=== PATIENT | female | born 1970 | race American Indian/Alaskan Native ===

== ENCOUNTER → 2018-02-09 23:24 | Emergency (ER) | payer MEDICAID | END | disposition left against medical advice (07) | LOC: ED 23:24 | DX: R07.9 Chest pain, unspecified (principal); Z53.21 Procedure and treatment not carried out due to patient leaving prior to being seen by health care provider | CPT/HCPCS: 93005; 93010 ==

== ENCOUNTER 2019-03-17 03:00 | Emergency (ER) | payer MEDICAID, OTHER ==
--- NOTE | 2019-03-17 04:15 | Emergency Department Report ---
Blank Doc - Documentation Documentation: Four-day history of right upper extremity pain that she describes as a heavine ss. Pain is mostly from the mid upper arm down towards the wrist. No obvious swelling. Patient has a history of left lower extremity DVT from 2013 and is not on any anticoagulation. Says that the right arm discomfort feels similar. She has taken multiple prescription and [id number] medications without much relief. No trauma or injury to the area. Labs Analgesia X-rays Right upper extremity venous Doppler ultrasound
[2019-03-17] MEDS ORDERED: MORPHINE 4 MG/1 ML INJ IV ONE (04:34)
[2019-03-17 04:36] LABS: Hematocrit 42.6 % (30.3-42.9); Hemoglobin 14.9 gm/dl (10.1-14.3); Mean Corpuscular HGB Conc 35 % (30-34); Mean Corpuscular Volume 92 fl (79-97); Platelet Count 287 K/mm3 (140-440); Red Blood Count 4.64 M/mm3 (3.65-5.03); Red Cell Distribution Width 14.5 % (13.2-15.2)
--- NOTE | 2019-03-17 04:44 | XRay Report ---
Right humerus-2 views Right forearm-2 views INDICATION: Right elbow pain for the past 4 days. COMPARISON: None. IMPRESSION: No acute osseous or soft tissue abnormality. No significant DJD. Signer Name: Brian Tadeo MD Signed: 03/17/2019 4:40 AM Workstation Name: [id number]
--- NOTE | 2019-03-17 04:44 | XRay Report ---
Right humerus-2 views Right forearm-2 views INDICATION: Right elbow pain for the past 4 days. COMPARISON: None. IMPRESSION: No acute osseous or soft tissue abnormality. No significant DJD. Signer Name: Brian Tadeo MD Signed: 03/17/2019 4:40 AM Workstation Name: [id number]
[2019-03-17 04:46] LABS: INR 0.92 (0.87-1.13); Partial Thromboplastin Time 26.4 Sec. (24.2-36.6)
[2019-03-17 04:56] LABS: BUN/Creatinine Ratio 20; Blood Urea Nitrogen 10 mg/dL (7-17); Calcium 9.4 mg/dL (8.4-10.2); Hemolysis Index 73
[2019-03-17 05:08] LABS: Basophils % (Manual) 0 % (0.0-1.8); Platelet Estimate Consistent w Auto; RBC Morphology Normal; Total Cells Counted 100
--- NOTE | 2019-03-17 06:28 | Emergency Department Report ---
ED General Adult HPI - General Chief complaint: Extremity Injury, Upper Stated complaint: RIGHT ARM AND BACK PAIN Time Seen by Provider: 03/17/19 06:26 Source: patient, EMS Mode of arrival: Wheelchair Limitations: No Limitations - History of Present Illness Initial comments: This is a 49-year-old female that presents to the emergency arm in for evaluatio n of right arm pain. She was given 4 mg of morphine prior to my arrival. She has a history of chronic left leg pain. Then on Lyrica before for chronic pain. I do believe she is taking chronic opioids. She is allergic to gabapentin and pregabalin. She admits that she has had arm pain like this before. She states her entire arm is aching as well as her right trapezius area. It hurts upon movement. She states the symptoms have been present intermittently for 4 days. She denies any sort of chest discomfort, neck discomfort or pain elsewhere. She denies any other systemic symptoms. She states the pain is achy and nonradiating. It is worsened by movement. -: Gradual, days(s) Location: right, upper extremity Radiation: non-radiation Quality: aching Consistency: intermittent Improves with: none Worsens with: movement Associated Symptoms: denies other symptoms Treatments Prior to Arrival: none - Related Data Home Medications Medication Instructions Recorded Confirmed Last Taken HYDROcodone/APAP 7.5-325 2 tab PO Q6H PRN 05/09/14 01/15/15 01/13/15 Tizanidine HCl 4 mg PO PRN PRN 01/14/15 01/15/15 01/13/15 Allergies Allergy/AdvReac Type Severity Reaction Status Date / Time pregabalin [From Lyrica] Allergy Diarrhea Verified 03/17/19 03:05 gabapentin AdvReac Bleeding Verified 03/17/19 03:05 ED Review of Systems ROS: Stated complaint: RIGHT ARM AND BACK PAIN Other details as noted in HPI Constitutional: denies: chills, fever Eyes: denies: eye pain, eye discharge, vision change ENT: denies: ear pain, throat pain Respiratory: denies: cough, shortness of breath, wheezing Cardiovascular: denies: chest pain, palpitations Endocrine: no symptoms reported Gastrointestinal: denies: abdominal pain, nausea, diarrhea Genitourinary: denies: urgency, dysuria, discharge Musculoskeletal: as per HPI. denies: back pain, joint swelling, arthralgia Skin: denies: rash, lesions Neurological: denies: headache, weakness, paresthesias Psychiatric: denies: anxiety, depression Hematological/Lymphatic: denies: easy bleeding, easy bruising ED Past Medical Hx - Past Medical History Previous Medical History?: Yes Hx Hypertension: No Hx Deep Vein Thrombosis: Yes Hx Renal Disease: No Hx Asthma: No Hx HIV: No Additional medical history: "CHRONIC REGIONAL NERVE PAIN" - Surgical History Past Surgical History?: Yes Hx Cholecystectomy: Yes Additional Surgical History: left ankle surgery x 2. LAPROSCOPIC ?? FOR SOME SURGERY - Social History Smoking Status: Current Every Day Smoker Substance Use Type: None - Medications Home Medications: Home Medications Medication Instructions Recorded Confirmed Last Taken Type HYDROcodone/APAP 7.5-325 2 tab PO Q6H PRN 05/09/14 01/15/15 01/13/15 History Tizanidine HCl 4 mg PO PRN PRN 01/14/15 01/15/15 01/13/15 History ED Physical Exam - General Limitations: No Limitations General appearance: alert, in no apparent distress - Head Head exam: Present: atraumatic, normocephalic - Eye Eye exam: Present: normal appearance. Absent: scleral icterus - ENT ENT exam: Present: mucous membranes moist - Neck Neck exam: Present: normal inspection, full ROM. Absent: tenderness, meningismus, lymphadenopathy - Respiratory Respiratory exam: Present: normal lung sounds bilaterally. Absent: respiratory distress - Cardiovascular Cardiovascular Exam: Present: regular rate, normal rhythm. Absent: systolic murmur, diastolic murmur, rubs, gallop - GI/Abdominal GI/Abdominal exam: Present: soft, normal bowel sounds. Absent: distended, tenderness, guarding, rebound - Extremities Exam Extremities exam: Present: normal inspection (right upper extremity appears norm al on inspection.), full ROM, tenderness (there is distinct tenderness to palpation of the right trapezius muscle), normal capillary refill, other (2+ strong radial pulses noted.). Absent: pedal edema, joint swelling, calf tenderness - Back Exam Back exam: Present: normal inspection - Neurological Exam Neurological exam: Present: alert, oriented X3 - Psychiatric Psychiatric exam: Present: normal affect, normal mood - Skin Skin exam: Present: warm, dry, intact, normal color. Absent: rash ED Course Vital Signs 03/17/19 03/17/19 03/17/19 03:05 04:05 04:11 Temperature 99.1 F Pulse Rate 97 H 86 Respiratory 18 15 20 Rate Blood Pressure 181/111 160/102 O2 Sat by Pulse 99 99 99 Oximetry 03/17/19 03/17/19 03/17/19 04:31 05:00 05:31 Temperature Pulse Rate 75 81 73 Respiratory 18 22 19 Rate Blood Pressure 149/89 157/107 143/87 O2 Sat by Pulse 99 97 97 Oximetry 03/17/19 03/17/19 03/17/19 06:00 07:53 08:01 Temperature Pulse Rate 67 Respiratory 19 Rate Blood Pressure 144/83 157/90 150/86 O2 Sat by Pulse 98 98 98 Oximetry 03/17/19 08:38 Temperature 98.0 F Pulse Rate Respiratory Rate Blood Pressure O2 Sat by Pulse Oximetry - Reevaluation(s) Reevaluation #1: Patient was given oral Percocet awaiting pain examination. Laboratory studies are not specifically remarkable. X-ray was negative. Doppler was negative. While busy with multiple critical patients this a.m., the charge nurse and informed me that the patient is anxious to receive her test results. While I was unavailable, the charge nurse discussed the radiology findings with the patient. I overheard the patient using profanity and acting obviously rude to the charge nurse. She stated that she simply was going to go to another hospital and left. 03/17/19 09:21 ED Medical Decision Making - Lab Data Result diagrams: 03/17/19 04:15 03/17/19 04:15 Laboratory Results - last 24 hr 03/17/19 03/17/19 03/17/19 04:15 04:15 04:15 WBC 13.5 H RBC 4.64 Hgb 14.9 H Hct 42.6 MCV 92 MCH 32 MCHC 35 H RDW 14.5 Plt Count 287 Lymph # [employer] Add Manual Diff Complete Total Counted 100 Seg Neuts % (Manual) 56.0 Band Neutrophils % 0 Lymphocytes % (Manual) 38.0 H Reactive Lymphs % (Man) 0 Monocytes % (Manual) 5.0 Eosinophils % (Manual) 1.0 Basophils % (Manual) 0 Metamyelocytes % 0 Myelocytes % 0 Promyelocytes % 0 Blast Cells % 0 Nucleated RBC % Not Reportable Seg Neutrophils # Man 7.6 Band Neutrophils # 0.0 Lymphocytes # (Manual) 5.1 Abs React Lymphs (Man) 0.0 Monocytes # (Manual) 0.7 Eosinophils # (Manual) 0.1 Basophils # (Manual) 0.0 Metamyelocytes # 0.0 Myelocytes # 0.0 Promyelocytes # 0.0 Blast Cells # 0.0 WBC Morphology Not Reportable Hypersegmented Neuts Not Reportable Hyposegmented Neuts Not Reportable Hypogranular Neuts Not Reportable Smudge Cells Not Reportable Toxic Granulation Not Reportable Toxic Vacuolation Not Reportable Dohle Bodies Not Reportable Pelger-Huet Anomaly Not Reportable Bceky Rods Not Reportable Platelet Estimate Consistent w auto Clumped Platelets Not Reportable Plt Clumps, EDTA Not Reportable Large Platelets Not Reportable Giant Platelets Not Reportable Platelet Satelliting Not Reportable Plt Morphology Comment Not Reportable RBC Morphology Normal Dimorphic RBCs Not Reportable Polychromasia Not Reportable Hypochromasia Not Reportable Poikilocytosis Not Reportable Anisocytosis Not Reportable Microcytosis Not Reportable Macrocytosis Not Reportable Spherocytes Not Reportable Pappenheimer Bodies Not Reportable Sickle Cells Not Reportable Target Cells Not Reportable Tear Drop Cells Not Reportable Ovalocytes Not Reportable Helmet Cells Not Reportable Lopez-Novi Bodies Not Reportable Bullock Rings Not Reportable [place] Cells Not Reportable Bite Cells Not Reportable Crenated Cell Not Reportable Elliptocytes Not Reportable Acanthocytes (Spur) Not Reportable Rouleaux Not Reportable Hemoglobin C Crystals Not Reportable Schistocytes Not Reportable Malaria parasites Not Reportable Abel Bodies Not Reportable Hem Pathologist Commnt No PT 12.4 INR 0.92 APTT 26.4 Sodium 138 Potassium 4.3 Chloride 102.9 Carbon Dioxide 19 L Anion Gap 20 BUN 10 Creatinine 0.5 L Estimated GFR > 60 BUN/Creatinine Ratio 20 Glucose 111 H Calcium 9.4 - Radiology Data Radiology results: report reviewed (x-rays were negative, Doppler was negative.) Critical care attestation.: If time is entered above; I have spent that time in minutes in the direct care of this critically ill patient, excluding procedure time. ED Disposition Clinical Impression: Right arm pain Disposition: ELOPED Is pt being admited?: No Does the pt Need Aspirin: No Condition: Stable Referrals: PRIMARY CARE, [Primary Care Provider] - 3-5 Days Time of Disposition: 09:26
--- NOTE | 2019-03-17 07:43 | Vascular Lab Report ---
Right upper extremity venous Doppler Ultrasound HISTORY: RUeE pain and swelling. TECHNIQUE: Grayscale and color Doppler imaging performed. COMPARISON: None FINDINGS: No thrombus identified from the level of the internal jugular vein through the subclavian, axillary, basilic, cephalic, brachial, radial, and ulnar veins. IMPRESSION: Negative for DVT. Signer Name: Brina Tadeo MD Signed: 03/17/2019 7:39 AM Workstation Name: [email or web address]
[2019-03-17] MEDS ORDERED: oxyCODONE /ACETAMINOPHEN 5-325MG TAB PO PRN (07:52)
[2019-03-17 08:38] VITALS: BP 150/86
== END 2019-03-17 09:10 | disposition left against medical advice (07) ==
LOC: ED 03:00
DX: M79.601 Pain in right arm (principal); F17.200 Nicotine dependence, unspecified, uncomplicated; Z86.718 Personal history of other venous thrombosis and embolism; Z90.49 Acquired absence of other specified parts of digestive tract; Z98.890 Other specified postprocedural states; Z79.899 Other long term (current) drug therapy; Z88.8 Allergy status to other drugs, medicaments and biological substances
CPT/HCPCS: 36415; 73060; 73090; 80048; 85007; 85025; 85610; 85730; 93971; 96374; 99285; J2270